=== PATIENT | male | born 1955 | race Caucasian/White ===

== ENCOUNTER 2023-03-20 13:58 | Emergency (ER) | payer MEDICARE ==
[~2023-03-20] VITALS: Ht 182.9 cm; Wt 111.1 kg
[2023-03-20 14:26] VITALS: BP 169/105
[2023-03-20] MEDS ORDERED: Lisinopril2.5 MG (14:39)
[2023-03-20] MEDS ORDERED: Amlodipine Bes2.5 MG (14:39)
[2023-03-20] MEDS ORDERED: IBUP800 PO (15:19)
[2023-03-20] MEDS ORDERED: HYDR1TAB94 PO (15:19)
== END 2023-03-20 15:34 | disposition home or self-care (01) ==
LOC: ER 13:58
DX: M10.9 Gout, unspecified (principal)
CPT/HCPCS: 29125; 73110; 99283-25; A9270